=== PATIENT | male | born 1945 | race Caucasian/White ===

== ENCOUNTER 2018-09-18 12:39 | Emergency (ER) | payer BC, MEDICARE ==
[2018-09-18] MEDS ORDERED: Sodium Chloride 0.9% 10 ML Syringe FLUSH PRN (12:52)
[2018-09-18] MEDS ORDERED: cefTRIAXone 1 GM Vial IVPUSH ONE (12:56)
[2018-09-18] MEDS ORDERED: Sodium Chloride 0.9% 1,000 ML IV SCH (13:00)
--- NOTE | 2018-09-18 13:42 | EDM.PDOC ---
ED HPI GENERAL MEDICAL PROBLEM - General Chief Complaint: General Stated Complaint: FEVER Time Seen by Provider: 09/18/18 12:51 Source of Information: Reports: Patient History Limitations: Reports: No Limitations - History of Present Illness INITIAL COMMENTS - FREE TEXT/NARRATIVE: Patient brought in with vague complaints of weakness that started yesterday and a fever that has progressively risen. Yesterday ran low grade temps of 99F, today temps are 103-104F. Family wanted him brought immediately to [facility] but EMS did explain that he needed to be brought to this facility for stablization. He is tachycardic, has low oxygen saturations of 90% on RA, fever of 103.3F. Respirations are normal at 18 RPM, blood pressure also 106/61. Denies chest pain, headache. He does endorse SOB, abdominal pain, and diarrhea. History of bladder cancer resulting in ileostomy placement. Questionable return and possible mets mentioned in urology report read in [facility] chart. This is a new finding from 08/2018. Patient states location is unknown at this time. Still smokes 2 PPD per 's report. No nausea or vomiting. Extremities weak but have full ROM. Onset: Gradual Duration: Getting Worse Location: Reports: Generalized Associated Symptoms: Reports: Fever/Chills Abdomen Pain Score (Numeric/FACES): 8 - Related Data Allergies Allergy/AdvReac Type Severity Reaction Status Date / Time No Known Allergies Allergy Verified 09/18/18 13:48 Home Meds: Home Meds Aspirin [Adult Low Dose Aspirin EC] 81 mg PO DAILY 08/21/13 [History] Omeprazole [Prilosec] 20 mg PO DAILY 08/21/13 [History] Acetaminophen [Tylenol Extra Strength] 1,000 mg PO Q4H PRN 09/18/18 [History] Albuterol [Ventolin HFA] 1 puff INH Q4H PRN 09/18/18 [History] Cranberry Conc/Ascorbic Acid [Cranberry Plus Vitamin C Sftgl] 1 each PO DAILY [History] Docusate Sodium [Colace] 100 mg PO ASDIRECTED 09/18/18 [History] Docusate Sodium/Sennosides [Senokot-S] 2 each PO BEDTIME 09/18/18 [History] Multivits,Ca,Minerals/Iron/FA [Thera-M] 1 each PO DAILY 09/18/18 [History] atorvaSTATin Calcium [Atorvastatin Calcium] 10 mg PO DAILY 09/18/18 [History] Past Medical History HEENT History: Reports: Cataract, Other (See Below) Other HEENT History: Posterior vitreous detachment Cardiovascular History: Reports: Blood Clots/VTE/DVT, High Cholesterol Respiratory History: Reports: COPD Gastrointestinal History: Reports: Other (See Below) Other Gastrointestinal History: Parastomal hernia of ileal conduit Genitourinary History: Reports: Pyelonephritis, Urostomy Endocrine/Metabolic History: Reports: Other (See Below) Other Endocrine/Metabolic History: Impaired fasting glucose Oncologic (Cancer) History: Reports: Bladder, Prostate - Past Surgical History GI Surgical History: Reports: Colonoscopy, Other (See Below) Social & Family History - Family History Family Medical History: Noncontributory - Caffeine Use Caffeine Use: Reports: Coffee - Living Situation & Occupation Living situation: Reports: Occupation: Retired ED ROS GENERAL - Review of Systems Review Of Systems: See Below Constitutional: Reports: Fever HEENT: Reports: No Symptoms Respiratory: Reports: Shortness of Breath Cardiovascular: Reports: No Symptoms Endocrine: Reports: No Symptoms GI/Abdominal: Reports: Abdominal Pain, Diarrhea : Reports: No Symptoms Musculoskeletal: Reports: No Symptoms Skin: Reports: No Symptoms Neurological: Reports: Weakness Psychiatric: Reports: No Symptoms Hematologic/Lymphatic: Reports: No Symptoms Immunologic: Reports: No Symptoms ED EXAM, GENERAL - Physical Exam Exam: See Below Exam Limited By: No Limitations General Appearance: Alert, Mild Distress Eye Exam: Bilateral Eye: EOMI, Normal Inspection, PERRL Ears: Normal TMs Nose: Normal Inspection, Normal Mucosa, No Blood Throat/Mouth: Normal Inspection, Normal Lips, Normal Teeth, Normal Gums, Normal Oropharynx, Normal Voice, No Airway Compromise Head: Atraumatic, Normocephalic Neck: Normal Inspection, Supple, Non-Tender, Full Range of Motion Respiratory/Chest: No Respiratory Distress, Lungs Clear, Decreased Breath Sounds Cardiovascular: No Edema, Tachycardia GI/Abdominal: Normal Bowel Sounds, Soft, Tender, Other (urostomy site and stoma clean, pink stoma) Extremities: Normal Inspection, Normal Range of Motion, Non-Tender, Normal Capillary Refill, No Pedal Edema Neurological: Alert, CN II-XII Intact, Confused. No: Oriented Psychiatric: Normal Affect, Normal Mood Skin Exam: Warm, Dry, Diaphoretic Lymphatic: No Adenopathy EKG INTERPRETATION EKG Date: 09/18/18 Time: 13:23 Rhythm: Other (sinus tachycardia) Rate (Beats/Min): 131 [place]: Normal P-Wave: Present QRS: Normal ST-T: Normal QT: Normal Comparison: No Change Course - Vital Signs Last Recorded V/S: Last Vital Signs Temp 39.3 C H 09/18/18 14:26 Pulse 107 H 09/18/18 16:14 Resp 18 09/18/18 16:14 BP 84/40 L 09/18/18 16:22 Pulse Ox 96 09/18/18 16:14 - Orders/Labs/Meds Orders: Active Orders 24 hr Category Date Time Status EKG Documentation Completion [RC] STAT Care 09/18/18 12:56 Active CULTURE BLOOD [BC] Stat Lab 09/18/18 13:01 Received CULTURE BLOOD [BC] Stat Lab 09/18/18 13:06 Received CULTURE URINE [RM] Stat Lab 09/18/18 13:20 Received Blood Culture x2 Reflex Set [OM.PC] Stat Oth 09/18/18 12:55 Ordered Saline Lock Insert [OM.PC] Routine Oth 09/18/18 12:52 Ordered Labs: Laboratory Tests 09/18/18 09/18/18 09/18/18 Range/Units 12:52 13:01 13:06 WBC 8.7 (4.0-10.0) x10^3/uL RBC 3.85 L (4.5-6.0) x10^6/uL Hgb 10.7 L D (14.0-18.0) g/dL Hct 33.5 L (40.0-52.0) % MCV 87.0 D (78.0-93.0) fL MCH 27.8 (26.0-32.0) pg MCHC 31.9 L (32.0-36.0) g/dL RDW Coeff of Falguni 15.5 H (10.0-15.0) % Plt Count 316 D (130-400) x10^3/uL Neut % (Auto) 88.2 H (50.0-80.0) % Lymph % (Auto) 6.0 L (25.0-50.0) % [place] % (Auto) 5.1 (2.0-11.0) % Eos % (Auto) 0.2 (0.0-4.0) % Baso % (Auto) 0.5 (0.2-1.2) % PT 13.0 H (10.0-12.8) SEC INR 1.1 L (2.0-3.5) Sodium (136-145) mmol/L Potassium (3.5-5.1) mmol/L Chloride (98-107) mmol/L Carbon Dioxide (21-32) mmol/L Anion Gap (10-20) mmol/L BUN (7-18) mg/dL Creatinine (0.70-1.30) mg/dL Est Cr Clr Drug Dosing Estimated GFR (MDRD) Glucose (74-106) mg/dL Lactic Acid (0.4-2.0) mmol/L Calcium (8.5-10.1) mg/dL Corrected Calcium (8.5-10.1) mg/dL Magnesium (1.8-2.4) mg/dL Total Bilirubin (0.2-1.0) mg/dL AST (15-37) U/L ALT (16-63) U/L Alkaline Phosphatase (46-116) U/L Troponin I (<=0.056) ng/mL C-Reactive Protein (<=0.9) mg/dL NT-Pro-B Natriuret Pep (<=125) pg/mL Total Protein (6.4-8.2) g/dL Albumin (3.4-5.0) g/dL Globulin Albumin/Globulin Ratio Amylase (25-115) U/L Lipase (73-393) U/L TSH, Ultra Sensitive (0.358-3.74) uIU/mL Urine Color Yellow (YELLOW) Urine Appearance Cloudy H (CLEAR) Urine pH 8.5 H (5.0-8.0) Ur Specific [place] 1.015 Urine Protein 100 H (NEGATIVE) mg/dL Urine Glucose (UA) Negative (NEGATIVE) mg/dL Urine Ketones Negative (NEGATIVE) mg/dL Urine Occult Blood Moderate H (NEGATIVE) Urine Nitrite Positive H (NEGATIVE) Urine Bilirubin Negative (NEGATIVE) Urine Urobilinogen 0.2 (0.2) EU/dL Ur Leukocyte Esterase Large H (NEGATIVE) Urine RBC 10-20 H (NOT SEEN) /HPF Urine WBC 10-20 H (NOT SEEN) /HPF Ur Squamous Epith Cells Rare (NEGATIVE) /HPF Amorphous Sediment Few Urine Bacteria Moderate H (NEGATIVE) /HPF 09/18/18 09/18/18 Range/Units 13:06 13:06 WBC (4.0-10.0) x10^3/uL RBC (4.5-6.0) x10^6/uL Hgb (14.0-18.0) g/dL Hct (40.0-52.0) % MCV (78.0-93.0) fL MCH (26.0-32.0) pg MCHC (32.0-36.0) g/dL RDW Coeff of Falguni (10.0-15.0) % Plt Count (130-400) x10^3/uL Neut % (Auto) (50.0-80.0) % Lymph % (Auto) (25.0-50.0) % [place] % (Auto) (2.0-11.0) % Eos % (Auto) (0.0-4.0) % Baso % (Auto) (0.2-1.2) % PT (10.0-12.8) SEC INR (2.0-3.5) Sodium 134 L (136-145) mmol/L Potassium 4.0 (3.5-5.1) mmol/L Chloride 98 (98-107) mmol/L Carbon Dioxide 20 L (21-32) mmol/L Anion Gap 20.0 (10-20) mmol/L BUN 27 H (7-18) mg/dL Creatinine 1.8 H (0.70-1.30) mg/dL Est Cr Clr Drug Dosing TNP Estimated GFR (MDRD) 37 Glucose 124 H (74-106) mg/dL Lactic Acid 1.7 (0.4-2.0) mmol/L Calcium 8.6 (8.5-10.1) mg/dL Corrected Calcium 9.72 (8.5-10.1) mg/dL Magnesium 1.5 L (1.8-2.4) mg/dL Total Bilirubin 0.8 (0.2-1.0) mg/dL AST 99 H (15-37) U/L ALT 100 H (16-63) U/L Alkaline Phosphatase 277 H (46-116) U/L Troponin I 0.318 H* (<=0.056) ng/mL C-Reactive Protein 26.6 H (<=0.9) mg/dL NT-Pro-B Natriuret Pep 1210 H (<=125) pg/mL Total Protein 8.2 (6.4-8.2) g/dL Albumin 2.6 L (3.4-5.0) g/dL Globulin 5.6 Albumin/Globulin Ratio 0.46 Amylase 40 (25-115) U/L Lipase 75 (73-393) U/L TSH, Ultra Sensitive 1.317 (0.358-3.74) uIU/mL Urine Color (YELLOW) Urine Appearance (CLEAR) Urine pH (5.0-8.0) Ur Specific [place] Urine Protein (NEGATIVE) mg/dL Urine Glucose (UA) (NEGATIVE) mg/dL Urine Ketones (NEGATIVE) mg/dL Urine Occult Blood (NEGATIVE) Urine Nitrite (NEGATIVE) Urine Bilirubin (NEGATIVE) Urine Urobilinogen (0.2) EU/dL Ur Leukocyte Esterase (NEGATIVE) Urine RBC (NOT SEEN) /HPF Urine WBC (NOT SEEN) /HPF Ur Squamous Epith Cells (NEGATIVE) /HPF Amorphous Sediment Urine Bacteria (NEGATIVE) /HPF Meds: Medications Discontinued Medications Generic Name Dose Route Start Last Admin Trade Name Demarco PRN Reason Stop Dose Admin Acetaminophen 1,000 mg 09/18/18 13:49 09/18/18 13:56 Tylenol Extra Strength PO 09/18/18 13:50 1,000 mg ONETIME ONE Administration Ceftriaxone Sodium 1 gm 09/18/18 12:56 09/18/18 13:17 Rocephin IVPUSH 09/18/18 12:57 1 gm STAT ONE Administration Sodium Chloride 1,000 mls @ 150 mls/hr 09/18/18 13:00 09/18/18 13:19 Normal Saline IV 150 mls/hr ASDIRECTED LITA Administration Vancomycin HCl 1 gm/ Sodium 250 mls @ 250 mls/hr 09/18/18 12:56 09/18/18 13: 19 Chloride IV 09/18/18 13:55 250 mls/hr STAT ONE Administration Morphine Sulfate 2 mg 09/18/18 13:49 09/18/18 13:57 Morphine IVPUSH 09/18/18 13:50 2 mg ONETIME ONE Administration Sodium Chloride 10 ml 09/18/18 12:52 Saline Flush FLUSH ASDIRECTED PRN Keep Vein Open Departure - Departure Time of Disposition: 16:45 Disposition: DC/Tfer to Acute Hospital 02 Condition: Fair Clinical Impression: Sepsis - Discharge Information *PRESCRIPTION DRUG MONITORING PROGRAM REVIEWED*: Not Applicable *COPY OF PRESCRIPTION DRUG MONITORING REPORT IN PATIENT KRISTEN: Not Applicable Referrals: Maddy Kevin, [Primary Care Provider] - Forms: ED Department Discharge, Interfacility Transfer EMTALA - My Orders Last 24 Hours: My Active Orders 09/18/18 12:52 Saline Lock Insert [OM.PC] Routine 09/18/18 12:55 Blood Culture x2 Reflex Set [OM.PC] Stat 09/18/18 12:56 EKG Documentation Completion [RC] STAT 09/18/18 13:01 CULTURE BLOOD [BC] Stat 09/18/18 13:06 CULTURE BLOOD [BC] Stat 09/18/18 13:20 CULTURE URINE [RM] Stat - Assessment/Plan Last 24 Hours: My Active Orders 09/18/18 12:52 Saline Lock Insert [OM.PC] Routine 09/18/18 12:55 Blood Culture x2 Reflex Set [OM.PC] Stat 09/18/18 12:56 EKG Documentation Completion [RC] STAT 09/18/18 13:01 CULTURE BLOOD [BC] Stat 09/18/18 13:06 CULTURE BLOOD [BC] Stat 09/18/18 13:20 CULTURE URINE [RM] Stat
[2018-09-18] MEDS ORDERED: Morphine 2 MG/ML Syringe IVPUSH ONE (13:49)
[2018-09-18] MEDS ORDERED: Acetaminophen 500 MG Tab PO ONE (13:49)
[2018-09-18 13:51] LABS: CHLORIDE,CL 98 mmol/L (98-107); SODIUM,NA 134 mmol/L (136-145)
--- NOTE | 2018-09-18 14:18 | CR ---
[id number] RAD/RAD Chest PA or AP 1V EXAM: SINGLE VIEW CHEST. INDICATION: FEVER COMPARISON: NO PREVIOUS SIMILAR EXAM IS AVAILABLE FINDINGS: The lungs are clear. The mediastinum is prominent. The cardiac silhouette is enlarged. Contrast CT chest would be helpful to check for possible adenopathy. IMPRESSION: NO PNEUMONIA. CONCERN FOR ENTITIES SUCH LYMPHOMA OR HODGKIN'S DISEASE. Malik Hodges MD 09/18/18 [id number] Thank you for allowing us to participate in the care of your patient.
[2018-09-18 16:23] VITALS: BP 84/40
== END 2018-09-18 16:45 | disposition short-term general hospital (02) ==
LOC: VM.ED 12:39
DX: A41.9 Sepsis, unspecified organism (principal); Z79.82 Long term (current) use of aspirin; Z79.899 Other long term (current) drug therapy
CPT/HCPCS: 36415; 71045; 80053; 81001; 82150; 83605; 83690; 83735; 83880; 84443; 84484; 85025; 85610; 86140; 87040; 87077; 87086; 87088; 87186; 93005; 96361; 96365; 96375; 99285-25; A9270-GY; J0696; J2270; J3370; J7030; J7050